=== PATIENT | female | born 1940 | race Caucasian/White ===

== ENCOUNTER 2022-09-24 08:46 | Emergency (ER) | payer BC ==
[2022-09-24 09:15] VITALS: BP 139/75; PULSE 85; RESP 20; TEMP 97.9; BMI 18.6
[2022-09-24] MEDS ORDERED: DIPHTH,PERTUSS(ACELL),TET 0.5 ML DISP.SYRIN IM ONE ×2 (10:19→10:28)
== END 2022-09-24 10:39 | disposition home or self-care (01) ==
LOC: FER 08:46
PROC: 0HQ1XZZ Repair Face Skin, External Approach (ICD-10-PCS; principal; 2022-09-24)
PROC: 0HQKXZZ Repair Right Lower Leg Skin, External Approach (ICD-10-PCS; 2022-09-24)
PROC: 3E0234Z Introduction of Serum, Toxoid and Vaccine into Muscle, Percutaneous Approach (ICD-10-PCS; 2022-09-24)
DX: S01.81XA Laceration without foreign body of other part of head, initial encounter (principal); S81.011A Laceration without foreign body, right knee, initial encounter; S61.512A Laceration without foreign body of left wrist, initial encounter; W01.198A Fall on same level from slipping, tripping and stumbling with subsequent striking against other object, initial encounter
CPT/HCPCS: 12001; 12011-25; 70450-TC; 70486-TC; 72125-TC; 73560-TC-RT-FY; 90471; 90715; 99284-25

== ENCOUNTER 2022-09-29 06:05 | Emergency (ER) | payer BC ==
[2022-09-29 06:16] VITALS: BP 139/64; PULSE 85; RESP 18; TEMP 98.2; BMI 18.6
[2022-09-29] MEDS ORDERED: SULFAMETHOXAZOLE/TRIMETHOPRIM 800MG/160MG D.S. TABLET PO ONE (06:38)
[2022-09-29] MEDS ORDERED: SULFAMETHOXAZOLE/TRIMETHOPRIM 800MG/160MG D.S. TABLET ONE (06:42)
== END 2022-09-29 06:50 | disposition home or self-care (01) ==
LOC: FER 06:05
DX: Z48.02 Encounter for removal of sutures (principal)
CPT/HCPCS: 99283-25

== ENCOUNTER 2022-10-08 06:11 | Emergency (ER) | payer BC ==
[2022-10-08 06:21] VITALS: BP 125/69; PULSE 90; RESP 16; TEMP 98.1
[2022-10-08 06:23] VITALS: BMI 18.6
== END 2022-10-08 06:45 | disposition home or self-care (01) ==
LOC: FER 06:11
DX: Z48.02 Encounter for removal of sutures (principal)
CPT/HCPCS: 99282-25